=== PATIENT | male | born 1970 | race Caucasian/White ===

== ENCOUNTER 2016-12-20 14:42 | Emergency (ER) | payer BC ==
[~2016-12-20] VITALS: Ht 188 cm; Wt 118.3 kg
[~2016-12-20 14:42] MED LIST: AMITIZA8 MICROGRA PO; ASPIR 8181 M1 PO; AUGMENTIN875 MG PO; BENTYL20 MG PO; BUSPAR10 MG PO; BUSPAR15 MG PO; CARAFATE1 GM; CARAFATE1 GM PO; COLESTID1 GM; CRESTOR20 MG PO; DAILY MULTIPLE1 EAC2 PO; DAILY VALUE1 EACH PO; DEXILANT60 MG; DEXILANT60 MG PO; FLONASE16 G1 BOTH NARES; GABAPENTIN300 MG PO; KEFLEX500 MG PO; KLONOPIN0.25 MG PO; LIDOCAINE700 MG TD; LINZESS290 MCG PO; MIRALAX17 GM PO; MOBIC15 MG PO; NAPROXEN500 MG PO; NEURONTIN300 MG PO; ONDANSETRON ODT8 MG; OXYCODONE HCL5 MG PO; PANTOPRAZOLE SO40 MG; PENTASA500 MG PO; PRINIVIL20 MG PO; PRISTIQ PO; PRISTIQ100 MG; PRISTIQ100 MG PO; PROBIOTIC1 EAC1 PO; PROTONIX40 MG PO; RANITIDINE HCL75 MG; SUCRALFATE1 GM PO; TORADOL10 MG PO; TRAMADOL HCL50 MG; TUMS300 MG PO; WELLBUTRIN XL150 MG PO; XANAX0.5 MG PO; ZANTAC150 MG PO; ZYRTEC-D1 TABLE1 PO; ZYRTEC10 M3 PO
[2016-12-20 16:02] LABS: HEMATOCRIT 42.6 % (38.0-50.0); MCH 28.9 PG (29.0-34.0); MCV 84.9 FL (86-99); MEAN PLAT.VOLUME 10.8 uM^3 (9.0-12.4); PLATELET COUNT 296 K/uL (156-360); RBC DIS.WIDTH-CV 13.7 % (11.8-14.6); RBC DIS.WIDTH-SD 42.2 % (39-53); RED BLOOD COUNT 5.02 M/uL (4.00-5.50); WHITE BLOOD COUNT 8.4 K/uL (4.1-10.2)
[2016-12-20 16:08] LABS: CHLORIDE 104 mEq/L (99-109); POTASSIUM 3.8 mEq/L (3.7-5.4); SODIUM 139 mEq/L (136-147)
[2016-12-20 16:11] LABS: GLUCOSE 95 mg/dL (70-99)
[2016-12-20 16:12] LABS: ANION GAP 11 MEQ/L (2-14); TOTAL BILIRUBIN 0.5 mg/dL (0.0-1.0)
[2016-12-20 16:14] LABS: ALKALINE PHOSPHATASE 72 IU/L (3-129); GFR ESTIMATE (CALCULATED) > 59 mL/min/
[2016-12-20 16:15] LABS: UREA NITROGEN (BUN) 9 mg/dL (9-23)
[2016-12-20 16:18] LABS: LIPASE 29 U/L (1.0-51.0)
[2016-12-20] MEDS ORDERED: INDOCIN50 MG PO (18:26)
[2016-12-20 18:42] VITALS: BP 117/74
== END 2016-12-20 18:43 | disposition home or self-care (01) ==
LOC: EME 14:42
PROVIDERS: Emergency Medicine
DX: R10.11 Right upper quadrant pain (principal); E78.5 Hyperlipidemia, unspecified; K21.9 Gastro-esophageal reflux disease without esophagitis; Z88.1 Allergy status to other antibiotic agents
CPT/HCPCS: 74177; 80053; 83690; 85027; 99281; 99284; J7040